=== PATIENT | male | born 1955 | race Caucasian/White ===

== ENCOUNTER 2021-03-03 16:53 | Inpatient (IN) | payer MEDICAID ==
[2021-03-03 17:25] LABS: #Basophils 0.1 thou/uL (0.0-0.2); #Lymphocytes 1.8 thou/uL (1.20-3.40); #Monocytes 0.9 thou/uL (0.11-0.59); #Neutrophils 3.5 thou/uL (1.40-6.50); %Basophils 1.3 % (0.0-1.0); %Eosinophils 0.5 % (0.0-10.0); %Lymphocytes 28.8 % (21.0-51.0); %Monocytes 14.6 % (0.0-10.0); %Neutrophils 54.7 % (42.0-75.0); Hemoglobin 13.4 g/dL (14.0-18.0); Mean Corpuscular HGB CONC 33.8 g/dL (32.0-36.0); Mean Corpuscular Hemoglobin 32.5 pg (27.0-31.0); Mean Corpuscular Volume 96.2 fL (78.0-98.0); Mean Platelet Volume 9.8 fL (7.4-10.4); Platelet Count 150 thou/uL (130-400); Red Blood Cell (RBC) Count 4.11 mill/uL (4.70-6.10); White Blood Cell (WBC) Count 6.4 thou/uL (4.8-10.8)
[2021-03-03 17:40] LABS: Bilirubin 1+ (Negative); Blood, Urine 2+ (Negative); Clarity Turbid (Clear); Glucose, Urine (Dipstick) Normal (Negative); Ketone, Urine 10 mg/dL (Negative); Leukocyte 500 Leu/uL (Negative); Nitrite 1+ (Negative); Protein, Urine (Dipstick) 50 mg/dL (Neg-Trace); RBC/HPF 21-50 HPF (0-3); Specific Gravity, Urine 1.028 (1.002-1.036); Squamous Epithelial 0-3 HPF (0-3); Urobilinogen 6 mg/dL (Less than 2); WBC/HPF Greater than 50 HPF (0-3); pH, Urine 5.5 (5.0-9.0)
[2021-03-03 17:42] LABS: Bacteria/HPF 1+ HPF (None Seen)
[2021-03-03 17:55] LABS: ALT (SGPT) 181 U/L (8-55); AST (SGOT) 194 U/L (5-34); Albumin 3.7 g/dL (3.4-4.8); Alkaline Phosphatase 96 U/L (40-110); Anion Gap 16 mmol/L (10-20); BUN (Urea Nitrogen) 12 mg/dL (8.4-25.7); Bilirubin, Total 1.7 mg/dL (0.2-1.2); Calc. Creatinine Clearance 0 mL/min (70-130); Calcium 8.6 mg/dL (7.8-10.44); Carbon Dioxide 25 mmol/L (23-31); Chloride 98 mmol/L (98-107); Glucose 93 mg/dL (80-115); Potassium 3.5 mmol/L (3.5-5.1); Protein, Total 6.7 g/dL (5.8-8.1); Sodium 135 mmol/L (136-145)
[2021-03-03] MEDS ORDERED: cefTRIAXone\\ROCEPHIN 2 GM VIAL ONE (18:08)
[2021-03-03] MEDS ORDERED: Ketorolac Tromethamine 30 MG/ML VIAL ONE (18:47)
[2021-03-03 20:14] LABS: Troponin I 0.028 ng/mL (< 0.028)
[2021-03-03 21:35] VITALS: BMI 18.5
[2021-03-03] MEDS ORDERED: Ondansetron PF 4 MG/2 ML Vial IVP PRN (21:37)
[2021-03-03] MEDS ORDERED: HYDROcodone/Acetaminophen 5/325 mg Tablet PO PRN (21:37)
[2021-03-03] MEDS ORDERED: Acetaminophen 325 MG TAB PO PRN (21:37)
[2021-03-03] MEDS ORDERED: Ondansetron ODT 4 MG TAB PO PRN (21:37)
[2021-03-03] MEDS: Sodium Chloride 0.9% 1,000 ML IV SCH (22:44)
[2021-03-03] MEDS: Piperacillin/Tazobactam 4.5 GM in Sodium Chloride 0.9% 100 ML IVPB SCH (22:45)
[2021-03-03 22:48] LABS: Troponin I 0.035 ng/mL (< 0.028)
[2021-03-04 04:57] LABS: SARS-CoV-2 PCR by NAA Not Detected (NotDetected)
[2021-03-04] MEDS: Piperacillin/Tazobactam 4.5 GM in Sodium Chloride 0.9% 100 ML IVPB SCH ×3 (05:12→21:04)
[2021-03-04 05:56] LABS: Anion Gap 12 mmol/L (10-20); BUN (Urea Nitrogen) 10 mg/dL (8.4-25.7); Calc. Creatinine Clearance 121 mL/min (70-130); Calcium 8.1 mg/dL (7.8-10.44); Carbon Dioxide 20 mmol/L (23-31); Chloride 109 mmol/L (98-107); Glucose 125 mg/dL (80-115); Potassium 3.1 mmol/L (3.5-5.1); Sodium 138 mmol/L (136-145)
[2021-03-04 06:10] LABS: Band 4 % (5-11); Eosinophils 5 % (0-10); Hemoglobin 11.3 g/dL (14.0-18.0); Lymphocytes 32 % (21-51); MDiff Complete? YES; Mean Corpuscular HGB CONC 32.4 g/dL (32.0-36.0); Mean Corpuscular Hemoglobin 31.1 pg (27.0-31.0); Mean Corpuscular Volume 96.2 fL (78.0-98.0); Mean Platelet Volume 10.5 fL (7.4-10.4); Monocytes 9 % (0-10); Neutrophil 50 % (42-75); Platelet Count 123 thou/uL (130-400); Red Blood Cell (RBC) Count 3.65 mill/uL (4.70-6.10); White Blood Cell (WBC) Count 3.8 thou/uL (4.8-10.8)
[2021-03-04] MEDS: Enoxaparin Sodium 40 MG/0.4 ML SYRINGE SC SCH (07:24)
[2021-03-04] MEDS: Flecainide 50 MG TAB PO SCH ×2 (08:51→21:04)
[2021-03-04] MEDS: Metoprolol Tartrate 50 MG TAB PO SCH ×2 (08:51→21:04)
[2021-03-04] MEDS: Sodium Chloride 0.9% 1,000 ML IV SCH ×2 (08:53→17:11)
[2021-03-04] MEDS: Aspirin 81 mg Enteric Coated Tablet PO SCH (08:56)
[2021-03-04 15:13] LABS: HBCM Index 0.08 S/CO (0-0.79); HBSAg Index 0.27 S/CO (0-0.99); Hep A IgM AB Non-Reactive (NonReactive); Hep A IgM S/CO 0.15 S/CO (0-0.79); Hep B Surf Ag Non-Reactive S/CO (NonReactive); Hep C IgG Ab Non-Reactive (NonReactive); Hep C Index 0.09 S/CO (0-0.79); Hepatitis B Core IgM Abs Non-Reactive (NonReactive)
[2021-03-05] MEDS: Sodium Chloride 0.9% 1,000 ML IV SCH ×3 (02:48→20:13)
[2021-03-05] MEDS: Piperacillin/Tazobactam 4.5 GM in Sodium Chloride 0.9% 100 ML IVPB SCH ×3 (05:36→21:32)
[2021-03-05] MEDS: Flecainide 50 MG TAB PO SCH ×2 (07:35→20:12)
[2021-03-05] MEDS: Metoprolol Tartrate 50 MG TAB PO SCH ×2 (07:35→20:12)
[2021-03-05] MEDS: Aspirin 81 mg Enteric Coated Tablet PO SCH (07:35)
[2021-03-05] MEDS: Enoxaparin Sodium 40 MG/0.4 ML SYRINGE SC SCH (07:35)
[2021-03-05] MEDS ORDERED: Potassium Chloride 20 MEQ TAB PO SCH (09:15)
[2021-03-05 09:55] LABS: HIV (1/2) Antibody/Antigen Non-Reactive (NonReactive); HIV 1/2 INDEX 0.24 S/CO (<1.00)
[2021-03-05] MEDS ORDERED: Iopamidol-370 76% 500 ML 1 ML ONE (10:29)
[2021-03-05 14:14] LABS: ALT (SGPT) 162 U/L (8-55); AST (SGOT) 162 U/L (5-34); Albumin 3.2 g/dL (3.4-4.8); Alkaline Phosphatase 100 U/L (40-110); Bilirubin, Direct 0.7 mg/dL (0.1-0.3); Bilirubin, Total 1.3 mg/dL (0.2-1.2); Protein, Total 5.9 g/dL (5.8-8.1)
[2021-03-05] MEDS ORDERED: Thiamine 100 MG TAB PO SCH (20:00)
[2021-03-05] MEDS: Thiamine 100 MG TAB PO SCH (20:11)
[2021-03-06 05:28] LABS: #Basophils 0.1 thou/uL (0.0-0.2); #Eosinphils 0.1 thou/uL (0.0-0.7); #Monocytes 0.8 thou/uL (0.11-0.59); #Neutrophils 3.3 thou/uL (1.40-6.50); %Basophils 1.2 % (0.0-1.0); %Eosinophils 1.1 % (0.0-10.0); %Lymphocytes 32.2 % (21.0-51.0); %Monocytes 13.3 % (0.0-10.0); %Neutrophils 52.1 % (42.0-75.0); Hemoglobin 11.4 g/dL (14.0-18.0); Mean Corpuscular HGB CONC 32.4 g/dL (32.0-36.0); Mean Corpuscular Hemoglobin 31.3 pg (27.0-31.0); Mean Corpuscular Volume 96.6 fL (78.0-98.0); Mean Platelet Volume 10.6 fL (7.4-10.4); Platelet Count 145 thou/uL (130-400); RBC Distribution Width 12.2 % (11.5-14.5); Red Blood Cell (RBC) Count 3.65 mill/uL (4.70-6.10); White Blood Cell (WBC) Count 6.2 thou/uL (4.8-10.8)
[2021-03-06] MEDS: Piperacillin/Tazobactam 4.5 GM in Sodium Chloride 0.9% 100 ML IVPB SCH ×2 (05:29→13:49)
[2021-03-06 05:46] LABS: ALT (SGPT) 154 U/L (8-55); AST (SGOT) 148 U/L (5-34); Albumin 3.1 g/dL (3.4-4.8); Alkaline Phosphatase 94 U/L (40-110); Anion Gap 12 mmol/L (10-20); BUN (Urea Nitrogen) 12 mg/dL (8.4-25.7); Bilirubin, Total 0.9 mg/dL (0.2-1.2); Calc. Creatinine Clearance 117 mL/min (70-130); Calcium 8.3 mg/dL (7.8-10.44); Carbon Dioxide 21 mmol/L (23-31); Chloride 110 mmol/L (98-107); Globulin 2.5 g/dL (2.4-3.5); Glucose 101 mg/dL (80-115); Iron 23 ug/dL (65-175); Iron Binding Capacity, Total 205 mcg/dL (261-462); Potassium 4.1 mmol/L (3.5-5.1); Protein, Total 5.6 g/dL (5.8-8.1); Sodium 139 mmol/L (136-145)
[2021-03-06 06:07] LABS: HBCM Index 0.07 S/CO (0-0.79); HBSAB Concentration Less than 8.00 mIU/mL; HBSAg Index 0.27 S/CO (0-0.99); Hep A IgM AB Non-Reactive (NonReactive); Hep A IgM S/CO 0.17 S/CO (0-0.79); Hep B Surf AB Non-Reactive (NonReactive); Hep B Surf Ag Non-Reactive S/CO (NonReactive); Hep C IgG Ab Non-Reactive (NonReactive); Hep C Index 0.09 S/CO (0-0.79); Hepatitis B Core IgM Abs Non-Reactive (NonReactive)
[2021-03-06] MEDS: Aspirin 81 mg Enteric Coated Tablet PO SCH (07:37)
[2021-03-06] MEDS: Enoxaparin Sodium 40 MG/0.4 ML SYRINGE SC SCH (07:37)
[2021-03-06] MEDS: Metoprolol Tartrate 50 MG TAB PO SCH ×2 (07:37→21:45)
[2021-03-06] MEDS: Flecainide 50 MG TAB PO SCH ×2 (07:37→21:45)
[2021-03-06] MEDS: Thiamine 100 MG TAB PO SCH (07:37)
[2021-03-06] MEDS: Folic Acid 1 MG TAB PO SCH (07:38)
[2021-03-06] MEDS: Multivit, Therapeutic 1 TAB PO SCH (07:38)
[2021-03-06] MEDS: Sodium Chloride 0.9% 1,000 ML IV SCH ×2 (10:58→21:46)
[2021-03-06] MEDS ORDERED: Loperamide HCl 2 MG CAP PO PRN (11:25)
[2021-03-06] MEDS: Cefdinir 300 MG CAP PO SCH (21:45)
[2021-03-07] MEDS: Sodium Chloride 0.9% 1,000 ML IV SCH ×2 (06:10→16:33)
[2021-03-07] MEDS ORDERED: Floranex Packet PO SCH (09:00)
[2021-03-07] MEDS ORDERED: Lactinex Tablet PO SCH (09:00)
[2021-03-07] MEDS: Cefdinir 300 MG CAP PO SCH (09:04)
[2021-03-07] MEDS: Multivit, Therapeutic 1 TAB PO SCH (09:04)
[2021-03-07] MEDS: Flecainide 50 MG TAB PO SCH (09:04)
[2021-03-07] MEDS: Folic Acid 1 MG TAB PO SCH (09:04)
[2021-03-07] MEDS: Thiamine 100 MG TAB PO SCH (09:05)
[2021-03-07] MEDS: Enoxaparin Sodium 40 MG/0.4 ML SYRINGE SC SCH (09:05)
[2021-03-07] MEDS: Metoprolol Tartrate 50 MG TAB PO SCH (09:05)
[2021-03-07] MEDS: Aspirin 81 mg Enteric Coated Tablet PO SCH (09:05)
[2021-03-07 11:49] VITALS: TEMP 98
[2021-03-07 16:30] VITALS: BP 112/72
[2021-03-08 16:16] LABS: ANA Symphony (Qualitative) Negative (Negative); ANA Symphony (Quantitative) 0.3 Ratio (< 0.7 Negative); EliA Vaculitis New Method **** NEW METHOD ****; dsDNA IgG Antibody 0.6 IU/mL (<10 Negative)
[2021-03-09 16:13] LABS: Smooth Muscle Total ABS 7 Units (0-19)
[2021-03-11 13:13] LABS: Alpha-1-Antitrypsin 189 mg/dL (101-187)
== END 2021-03-07 17:40 | disposition home or self-care (01) | DRG 699 ==
LOC: ERS 16:53 → 2SW 19:34 → OBSVTOIN 03-04 09:04 → 2NO 03-06 14:15
PROVIDERS: ADMIT Student in an Organized Health Care Education/Training Program; ATTEND Internal Medicine
PROC: 0T2BX0Z Change Drainage Device in Bladder, External Approach (ICD-10-PCS; principal; 2021-03-04)
DX: T83.510A Infection and inflammatory reaction due to cystostomy catheter, initial encounter (principal); N39.0 Urinary tract infection, site not specified; Z68.1 Body mass index [BMI] 19.9 or less, adult; R74.01 Elevation of levels of liver transaminase levels; I48.91 Unspecified atrial fibrillation; K21.9 Gastro-esophageal reflux disease without esophagitis; N31.2 Flaccid neuropathic bladder, not elsewhere classified; J44.9 Chronic obstructive pulmonary disease, unspecified; B96.1 Klebsiella pneumoniae [K. pneumoniae] as the cause of diseases classified elsewhere; R19.7 Diarrhea, unspecified; S30.1XXA Contusion of abdominal wall, initial encounter; R63.6 Underweight; Z20.822 Contact with and (suspected) exposure to COVID-19; X58.XXXA Exposure to other specified factors, initial encounter; Y84.6 Urinary catheterization as the cause of abnormal reaction of the patient, or of later complication, without mention of misadventure at the time of the procedure; Z88.2 Allergy status to sulfonamides; Z87.891 Personal history of nicotine dependence; Z71.6 Tobacco abuse counseling
CPT/HCPCS: 36415; 71045; 74177; 76705; 80048; 80053; 80074; 80076; 81003; 81015; 82103; 82104; 83516; 83540; 83550; 83605; 83880; 84484; 85025; 86038; 86225; 86706; 86708; 87040; 87077; 87086; 87186; 87324; 87389; 87449; 87635; 93005; 93306; 96365; 96372; 96375; 96376; G0378; J0696; J1650; J1885; J2543; J3490; Q9967; U0003; U0005

== ENCOUNTER 2021-03-08 20:39 | Inpatient (IN) | payer OTHER, MEDICAID ==
[2021-03-08 21:33] LABS: Hemoglobin 11.4 g/dL (14.0-18.0); Mean Corpuscular HGB CONC 32.7 g/dL (32.0-36.0); Mean Corpuscular Hemoglobin 31.7 pg (27.0-31.0); Mean Corpuscular Volume 96.9 fL (78.0-98.0); Platelet Count 155 thou/uL (130-400); RBC Distribution Width 12.2 % (11.5-14.5); Red Blood Cell (RBC) Count 3.59 mill/uL (4.70-6.10); White Blood Cell (WBC) Count 5.5 thou/uL (4.8-10.8)
[2021-03-08 21:51] LABS: Band 1 % (5-11); Hypochromia SLIGHT = 6-15 cells (100X) (0-5/hpf); Lymphocytes 33 % (21-51); MDiff Complete? YES; Monocytes 16 % (0-10); Neutrophil 50 % (42-75); Platelet Morphology Comment Appears Adequate
[2021-03-08 21:55] LABS: ALT (SGPT) 112 U/L (8-55); AST (SGOT) 79 U/L (5-34); Albumin 3.3 g/dL (3.4-4.8); Alkaline Phosphatase 94 U/L (40-110); Anion Gap 13 mmol/L (10-20); BUN (Urea Nitrogen) 10 mg/dL (8.4-25.7); Calc. Creatinine Clearance 0 mL/min (70-130); Calcium 8.5 mg/dL (7.8-10.44); Carbon Dioxide 22 mmol/L (23-31); Chloride 107 mmol/L (98-107); Globulin 2.7 g/dL (2.4-3.5); Glucose 107 mg/dL (80-115); Potassium 4.5 mmol/L (3.5-5.1); Sodium 137 mmol/L (136-145)
[2021-03-08] MEDS ORDERED: Rabies Vaccine Human 2.5 UNITS VIAL IM ONE (22:00)
[2021-03-08] MEDS ORDERED: Furosemide 40 MG/4 ML VIAL ONE (22:35)
[2021-03-08] MEDS ORDERED: Boostrix 0.5 ML (Tdap) VIAL ONE ×2 (22:35→22:36)
[2021-03-08] MEDS ORDERED: Ondansetron ODT 4 MG TAB PO PRN (23:58)
[2021-03-08] MEDS ORDERED: Acetaminophen 325 MG TAB PO PRN (23:58)
[2021-03-09 01:17] VITALS: TEMP 98.1
[2021-03-09 01:23] VITALS: BMI 19.6
[2021-03-09 05:05] VITALS: BP 113/59
[2021-03-09 05:16] LABS: Hemoglobin 10.9 g/dL (14.0-18.0); Mean Corpuscular HGB CONC 32.3 g/dL (32.0-36.0); Mean Corpuscular Hemoglobin 31.4 pg (27.0-31.0); Mean Corpuscular Volume 97.2 fL (78.0-98.0); Mean Platelet Volume 10.2 fL (7.4-10.4); Platelet Count 158 thou/uL (130-400); RBC Distribution Width 12.4 % (11.5-14.5); Red Blood Cell (RBC) Count 3.49 mill/uL (4.70-6.10); White Blood Cell (WBC) Count 5.5 thou/uL (4.8-10.8)
[2021-03-09 05:31] LABS: Eosinophils 1 % (0-10); Lymphocytes 45 % (21-51); MDiff Complete? YES; Monocytes 13 % (0-10); Neutrophil 40 % (42-75); Platelet Morphology Comment Appears Adequate; Reactive Lymphocytes 1 % (0-10)
[2021-03-09 05:35] LABS: Anion Gap 13 mmol/L (10-20); BUN (Urea Nitrogen) 13 mg/dL (8.4-25.7); Calc. Creatinine Clearance 124 mL/min (70-130); Calcium 8.5 mg/dL (7.8-10.44); Carbon Dioxide 24 mmol/L (23-31); Chloride 108 mmol/L (98-107); Glucose 95 mg/dL (80-115); Potassium 3.9 mmol/L (3.5-5.1); Sodium 141 mmol/L (136-145)
[2021-03-09] MEDS ORDERED: Metoprolol Tartrate 50 MG TAB PO SCH (09:00)
[2021-03-09] MEDS ORDERED: Furosemide 40 MG/4 ML VIAL SLOW IVP SCH (09:00)
[2021-03-09] MEDS ORDERED: Aspirin 81 mg Enteric Coated Tablet PO SCH (09:00)
[2021-03-09] MEDS ORDERED: Flecainide 50 MG TAB PO SCH (09:00)
[2021-03-09] MEDS ORDERED: Cefdinir 300 MG CAP PO SCH (09:00)
[2021-03-09] MEDS ORDERED: Enoxaparin Sodium 40 MG/0.4 ML SYRINGE SC SCH (09:00)
[2021-03-09] MEDS ORDERED: Prevnar 13-Val Conj/PF 0.5 ML SYRINGE IM ONE (09:00)
[2021-03-09] MEDS ORDERED: Floranex Packet PO SCH (09:00)
== END 2021-03-09 08:35 | disposition left against medical advice (07) | DRG 292 ==
LOC: ERS 20:39 → 2NO 23:09
PROVIDERS: ADMIT Family Medicine; ATTEND Internal Medicine
DX: I50.9 Heart failure, unspecified (principal); N39.0 Urinary tract infection, site not specified; I48.91 Unspecified atrial fibrillation; F17.210 Nicotine dependence, cigarettes, uncomplicated; R74.01 Elevation of levels of liver transaminase levels; T14.8XXA Other injury of unspecified body region, initial encounter; Z59.0 Homelessness; Z88.2 Allergy status to sulfonamides; W54.0XXA Bitten by dog, initial encounter; Z72.89 Other problems related to lifestyle; Z79.82 Long term (current) use of aspirin
CPT/HCPCS: 36415; 71045; 80048; 80053; 83880; 85025; 90376; 90471; 90472; 90675; 90715; 93005; 96372; 96374; J1940